=== PATIENT | female | born 1975 | race American Indian/Alaskan Native ===

== ENCOUNTER 2016-09-01 07:50 | Outpatient (CLI) | payer BC ==
--- NOTE | 2016-09-01 10:57 | Mammography Report ---
Bilateral digital screening mammogram with CAD. History colon cancer screening. Findings: Comparison is made to the previous study on December 10, 2012. In the lateral aspect of the right breast on the CC projection, there is an area of slight architectural irregularity which was present on the study in 2012 and has not changed significantly since the previous study. This area was worked up at that time with additional images which were negative. No suspicious calcifications or masses are seen in either breast. Impression: No suspicious findings or significant interval changes. BI-RADS code: 1. Recommendation: Annual screening.
== END 2016-09-01 07:51 | disposition home or self-care (01) ==
LOC: MAMMO 07:50
PROVIDERS: ATTEND Family Medicine
DX: Z12.31 Encounter for screening mammogram for malignant neoplasm of breast (principal)
CPT/HCPCS: 77067; G0202

== ENCOUNTER 2016-10-14 13:52 | Outpatient (CLI) | payer BC | END 2016-10-14 13:53 | disposition home or self-care (01) | LOC: ECHO 13:52 | PROVIDERS: ATTEND Family Medicine | DX: R94.31 Abnormal electrocardiogram [ECG] [EKG] (principal) | CPT/HCPCS: 93306 ==

== ENCOUNTER 2017-06-15 07:49 | Emergency (ER) | payer BC ==
[2017-06-15] MEDS ORDERED: TORADOL IM ONE (10:18)
--- NOTE | 2017-06-15 10:21 | Emergency Department Report ---
Blank Doc - Documentation Documentation: Patient is 41 years old female history of hypertension and hyperlipidemia. Patient presented today with a right upper back pain that started all of a sudden while she was in the shower this morning. Patient stated that she had her pain increases with deep inspiration. She denied any fever or chest pain. No cough. Patient denied any nausea or vomiting. On a quick exam patient does have tenderness on the right upper back and increased pain with right shoulder movement. At this time I think the patient would need to have a d-dimer and a basic labs to screen for PE. Patient is given Toradol IM for pain relief.
[2017-06-15 10:40] LABS: Basophils % (Auto) 0.4 % (0.0-1.8); Eosinophils # (Auto) 0.1 K/mm3 (0.0-0.4); Eosinophils % (Auto) 0.9 % (0.0-4.3); Hematocrit 40.8 % (30.3-42.9); Hemoglobin 13.5 gm/dl (10.1-14.3); Lymphocytes # (Auto) 1.6 K/mm3 (1.2-5.4); Lymphocytes % (Auto) 26.7 % (13.4-35.0); Mean Corpuscular HGB Conc 33 % (30-34); Mean Corpuscular Hemoglobin 29 pg (28-32); Mean Corpuscular Volume 88 fl (79-97); Monocytes # (Auto) 0.3 K/mm3 (0.0-0.8); Monocytes % (Auto) 5.3 % (0.0-7.3); Platelet Count 230 K/mm3 (140-440); Red Blood Count 4.61 M/mm3 (3.65-5.03); Red Cell Distribution Width 13.6 % (13.2-15.2)
[2017-06-15 10:56] LABS: Alanine Aminotransferase 9 units/L (7-56); Albumin 4.3 g/dL (3.9-5); BUN/Creatinine Ratio 14; Blood Urea Nitrogen 11 mg/dL (7-17); Calcium 9.2 mg/dL (8.4-10.2); Hemolysis Index 5
--- NOTE | 2017-06-15 11:37 | Emergency Department Report ---
ED Back Pain/Injury HPI - General Chief Complaint: Back Pain/Injury Stated Complaint: KALPANA Time Seen by Provider: 06/15/17 10:12 Source: patient Limitations: No Limitations - History of Present Illness Initial Comments: This is a 41-year-old female nontoxic, well nourished in appearance, no acute signs of distress presents to the ED with c/o of mid back pain x1 day. Patient describes pain as aching with level of 1110. Patient denies any trauma to the region. Patient stated that she developed this pain suddenly while she was in the shower. Patient pain is increased by deep inspiration. Patient denies any chest pain, shortness of breath, fever, chills, nausea, vomiting, headache, stiff neck, numbness, tingling, calf pain, calf tenderness, hemoptysis. Patient stated symptoms are relieved when not moving shoulder/back and increased when movement. Patient denies difficulty breathing. Patient denies any recent travels, rhonchi, recent hospital stays. Patient denies any drug allergies or significant past medical history. MD Complaint: back pain -: This morning Similar Symptoms Previously: No Place: home Radiation: none Severity: mild Severity scale (0 -10): 8 Quality: aching Consistency: constant Improves With: immobilization Worsens With: movement Associated Symptoms: denies other symptoms. denies: confusion, weakness, chest pain, numbness, difficulty walking, cough, difficulty urinating, diaphoresis, incontinence, fever/chills, constipation, headaches, abdominal pain, loss of appetite, malaise, nausea/vomiting, rash, seizure, shortness of breath, syncope - Related Data Previous Rx's Medication Instructions Recorded Last Taken Type Cyclobenzaprine [Flexeril] 10 mg PO QHS PRN #7 tablet 06/15/17 Unknown Rx Ibuprofen [Motrin] 600 mg PO Q8H PRN #30 tablet 06/15/17 Unknown Rx Allergies Allergy/AdvReac Type Severity Reaction Status Date / Time No Known Allergies Allergy Unverified 06/15/17 07:59 ED Review of Systems ROS: Stated complaint: KALPANA Other details as noted in HPI Constitutional: denies: chills, fever Eyes: denies: eye pain, eye discharge, vision change ENT: denies: ear pain, throat pain Respiratory: denies: cough, shortness of breath, wheezing Cardiovascular: denies: chest pain, palpitations Endocrine: no symptoms reported Gastrointestinal: denies: abdominal pain, nausea, diarrhea Genitourinary: denies: urgency, dysuria, discharge Musculoskeletal: back pain. denies: joint swelling, arthralgia Skin: denies: rash, lesions Neurological: denies: headache, weakness, paresthesias Psychiatric: denies: anxiety, depression Hematological/Lymphatic: denies: easy bleeding, easy bruising ED Past Medical Hx - Past Medical History Previous Medical History?: Yes Hx Hypertension: Yes Additional medical history: high cholesterol - Surgical History Past Surgical History?: Yes Additional Surgical History: hysterectomy. C section - Social History Smoking Status: Never Smoker Substance Use Type: None - Medications Home Medications: Home Medications Medication Instructions Recorded Confirmed Last Taken Type Cyclobenzaprine [Flexeril] 10 mg PO QHS PRN #7 tablet 06/15/17 Unknown Rx Ibuprofen [Motrin] 600 mg PO Q8H PRN #30 tablet 06/15/17 Unknown Rx ED Physical Exam - General Limitations: No Limitations General appearance: alert, in no apparent distress - Head Head exam: Present: atraumatic, normocephalic - Eye Eye exam: Present: normal appearance, PERRL, EOMI Pupils: Present: normal accommodation - ENT ENT exam: Present: normal exam, normal orophraynx, mucous membranes moist, TM's normal bilaterally, normal external ear exam - Neck Neck exam: Present: normal inspection, full ROM. Absent: tenderness, meningismus, lymphadenopathy, thyromegaly - Respiratory Respiratory exam: Present: normal lung sounds bilaterally. Absent: respiratory distress, wheezes, rales, rhonchi, stridor, chest wall tenderness, accessory muscle use, decreased breath sounds, prolonged expiratory - Cardiovascular Cardiovascular Exam: Present: regular rate, normal rhythm, normal heart sounds. Absent: irregular rhythm, systolic murmur, diastolic murmur, rubs, gallop - GI/Abdominal GI/Abdominal exam: Present: soft, normal bowel sounds. Absent: distended, tenderness, guarding, rebound, rigid, diminished bowel sounds - Rectal Rectal exam: Present: deferred - Extremities Exam Extremities exam: Present: normal inspection, full ROM, normal capillary refill. Absent: tenderness, pedal edema, joint swelling, calf tenderness - Back Exam Back exam: Present: normal inspection, full ROM, paraspinal tenderness ( throacic region). Absent: tenderness, CVA tenderness (R), CVA tenderness (L), muscle spasm, vertebral tenderness, rash noted - Expanded Back Exam Expanded Back exam: Absent: saddle anesthesia Back exam: Negative Straight Leg Raising: Left, Right - Neurological Exam Neurological exam: Present: alert, oriented X3, CN II-XII intact, normal gait, reflexes normal - Psychiatric Psychiatric exam: Present: normal affect, normal mood - Skin Skin exam: Present: warm, dry, intact, normal color. Absent: rash - Other Other exam information: Negative Holmans test bilaterally ED Course Vital Signs 06/15/17 07:54 Temperature 97.5 F L Pulse Rate 109 H Respiratory 16 Rate Blood Pressure 163/81 O2 Sat by Pulse 100 Oximetry - Reevaluation(s) Reevaluation #1: 06/15/17 11:39 Patient is speaking in full sentences with no signs of distress noted. - Consultations Consultation #1: 06/15/17 11:39 Patient has been consulted with Dr. Choe about patient history, physical exam , and labs and examined and screened patient and agrees to ED plan of care and discharge plan of care. ED Medical Decision Making - Lab Data Result diagrams: 06/15/17 10:25 06/15/17 10:25 - Medical Decision Making This is a 40-year-old female that presents with muscle strain. Patient is stable and with examiner by me and Dr. Choe. Labs unremarkable. Patient received Toradol 60 mg IM in the ED was decreased his symptoms have improved and subsided. Wells criteria 0 point. No history or signs of PE or DVT. D- dimer negative. Patient is discharged with Flexeril and Motrin and was instructed not to operate any machinery while taking Flexeril due to drowsiness. Patient was also instructed Follow-up with a primary care doctor in 3-5 days or if symptoms worsen and continue return to emergency room as soon as possible. At time of discharge, the patient does not seem toxic or ill in appearance. No acute signs of distress noted. Patient agrees to discharge treatment plan of care. No further questions noted by the patient. Critical care attestation.: If time is entered above; I have spent that time in minutes in the direct care of this critically ill patient, excluding procedure time. ED Disposition Clinical Impression: Muscle strain of right upper back Qualifiers: Encounter type: initial encounter Qualified Code(s): S29.012A - Strain of muscle and tendon of back wall of thorax, initial encounter Disposition: - TO HOME OR SELFCARE Is pt being admited?: No Does the pt Need Aspirin: No Condition: Stable Instructions: Muscle Strain (ED), Cyclobenzaprine (By mouth), Ibuprofen (By mouth) Additional Instructions: Follow-up with your primary care doctor in 3-5 days or if symptoms worsen such as bladder or bowel stability, chest pain, short of breath, numbness or tingling sensation in extremities, headache, dizziness, visual changes, nausea vomiting, or abdominal pain, return back to emergency room as was possible. Take ibuprofen and Flexeril as prescribed. Do not operate heavy machinery while taking Flexeril due to sedation Prescriptions: Cyclobenzaprine [Flexeril] 10 mg PO QHS PRN #7 tablet PRN Reason: Muscle Spasm Ibuprofen [Motrin] 600 mg PO Q8H PRN #30 tablet PRN Reason: Pain Referrals: ROBIN CHEN MD [Primary Care Provider] - 3-5 Days PRIMARY CARE, [Referring] - 3-5 Days [facility] [Outside] - 3-5 Days [facility] [Outside] - 3-5 Days Forms: Work/School Release Form(ED)
[2017-06-15 11:38] VITALS: BP 134/75
== END 2017-06-15 12:04 | disposition home or self-care (01) ==
LOC: ED 07:49
DX: S29.012A Strain of muscle and tendon of back wall of thorax, initial encounter (principal); I10 Essential (primary) hypertension; E78.00 Pure hypercholesterolemia, unspecified; X58.XXXA Exposure to other specified factors, initial encounter; Y93.89 Activity, other specified; Y92.89 Other specified places as the place of occurrence of the external cause; Y99.8 Other external cause status
CPT/HCPCS: 36415; 80053; 85025; 85379; 96372; 99283; J1885

== ENCOUNTER 2017-09-02 08:16 | Outpatient (CLI) | payer BC ==
--- NOTE | 2017-09-02 11:03 | Mammography Report ---
Screening tomomammogram and 2-D compiled images: The compiled 2-D images are compared to her prior standard mammogram in September 2016. There is a heterogeneously dense and symmetrically distributed fibroglandular pattern with no obvious interval changes. Bilateral tomomammograms in CC and lateral projections show unremarkable breast patterns bilaterally. CAD used. Impression: Stable exam. Recommendation: Annual mammogram followup. BI-RADS CATEGORY: 1 = Negative ACR BI-RADS MAMMOGRAPHIC CODES: 0 = Needs additional imaging evaluation; 1 = Negative; 2 = Benign; 3 = Probably benign; 4 = Suspicious; 5 = Malignant; 6 = Known biopsy-proven malignancy COMMENT: 1. Dense breast tissue, i.e., adenosis, fibrocystic changes, etc., may obscure an underlying neoplasm. 2. Approximately 10% of cancers are not detected with mammography. 3. A negative mammography report should not delay biopsy if a clinically suspicious mass is present.
== END 2017-09-02 08:17 | disposition home or self-care (01) ==
LOC: MAMMO 08:16
PROVIDERS: ATTEND Family Medicine
DX: Z12.31 Encounter for screening mammogram for malignant neoplasm of breast (principal)
CPT/HCPCS: 77063; 77067